=== PATIENT | female | born 1995 | race African-American/Black ===

== ENCOUNTER → 2017-11-29 | Outpatient (CLI) | payer OTHER, MEDICAID | LOC: M RAD 10:43 | DX: O20.9 Hemorrhage in early pregnancy, unspecified (principal); Z36.89 Encounter for other specified antenatal screening; Z3A.01 Less than 8 weeks gestation of pregnancy | CPT/HCPCS: 76801 ==

== ENCOUNTER → 2017-12-20 | Outpatient (CLI) | payer OTHER, MEDICAID ==
[2017-12-20 12:53] LABS: HCG, SERUM QUANTITATIVE 483 MIU/ML
== END ==
LOC: M LAB 12:02
DX: Z32.01 Encounter for pregnancy test, result positive (principal)
CPT/HCPCS: 84702

== ENCOUNTER 2018-03-25 16:54 | Emergency (ER) | payer OTHER, MEDICAID ==
[~2018-03-25] VITALS: Ht 154.9 cm; Wt 48.6 kg
[2018-03-25 16:54] VITALS: BP 124/85
[2018-03-25] MEDS ORDERED: ENSKTAB PO (17:33)
== END 2018-03-25 19:15 | disposition left against medical advice (07) ==
LOC: M ED 16:54
DX: Z53.21 Procedure and treatment not carried out due to patient leaving prior to being seen by health care provider (principal)

== ENCOUNTER → 2018-06-11 | Outpatient (CLI) | payer OTHER, MEDICAID ==
[~2018-06-11] MED LIST: ENSK1TAB3 PO
[2018-06-11 14:48] LABS: THYROID STIMULATING HORMONE 0.933 uIU/ML (0.463-3.98)
[2018-06-11 14:50] LABS: PROLACTIN 27.1 NG/ML
== END ==
LOC: M LAB 13:37
PROVIDERS: ATTEND Nurse Practitioner Family
DX: N64.52 Nipple discharge (principal)